=== PATIENT | female | born 1950 | race Caucasian/White ===

== ENCOUNTER 2016-03-02 14:18 | Emergency (ER) | payer MEDICARE, OTHER ==
[~2016-03-02] VITALS: Wt 65.0 kg
[~2016-03-02 14:18] MED LIST: IBUP-1542 PO; TEGRETOL
[2016-03-02] MEDS ORDERED: AZIT250T94 PO (15:16)
[2016-03-02] MEDS ORDERED: D-ME473S18 PO (15:16)
--- NOTE | 2016-03-02 15:18 | ERD ---
ER Documentation Chief Complaint Date/Time DATE: 03/02/16 TIME: 15:17 Chief Complaint COUGH AND CONGESTION FOR THE PAST 4 DAYS. NO RELEIF WITH OTC MED HPI 65-year-old female complains of congestion for the last week. With productive cough. Finds relief with Promethazine DM. Denies fevers, chest pain, vomiting , abdominal pain. ROS All systems reviewed and are negative except as per history of present illness. Medications Home Meds Active Scripts Azithromycin* (Zithromax*) 250 Mg Tablet, 250 MG PO .ZPACK DIRECTED, #6 TAB TAKE 500 MG (2 TABS) THE FIRST DAY THEN 250 MG (1 TAB) DAYS 2-5 Prov:NOY GREGORY MD 03/02/16 Dextromethorphan Hb-Promethazine Hcl (Promethazine DM Syrup) 473 Ml Syrup, 5 ML PO Q6H Y for COUGH, #4 OZ Prov:NOY GREGORY MD 03/02/16 Ibuprofen* (Motrin*) 600 Mg Tab, 600 MG PO Q6H Y for PAIN AND OR ELEVATED TEMP, #30 TAB Prov:PHILIP PAYTON MD 11/05/15 Reported Medications [Tegretol] No Conflict Check 06/01/13 Allergies Allergies: Coded Allergies: No Known Allergy (Unverified , 04/22/14) PMhx/Soc History of Surgery: No Anesthesia Reaction: No Hx Neurological Disorder: No Hx Respiratory Disorders: No Hx Cardiac Disorders: No Hx Psychiatric Problems: No Hx Miscellaneous Medical Probl: Yes (SZ) Hx Alcohol Use: No Hx Substance Use: No Hx Tobacco Use: No Smoking Status: Never smoker Physical Exam Vitals Vital Signs Date Time Temp Pulse Resp B/P Pulse Ox O2 Delivery O2 Flow Rate FiO2 03/02/16 14:43 98.8 72 22 145/71 97 Physical Exam Const: [] Alert, [id number] Head: Atraumatic Eyes: Normal Conjunctiva ENT: Normal External Ears, Nose and Mouth. Neck: Full range of motion..~ No meningismus. Resp: Clear to auscultation bilaterally. No rales or wheezing appreciated. Cardio: Regular rate and rhythm, no murmurs Abd: Soft, non tender, non distended. Normal bowel sounds Skin: No petechiae or rashes Back: No midline or flank tenderness Ext: No cyanosis, or edema Neur: Awake and alert Psych: Normal Mood and Affect Procedures/MDM Patient presents with URI symptoms productive cough for the last week without evidence of hypoxemia, signs of pneumonia, respiratory distress or other causes of chest pain or abdominal pain. Patient will be treated with promethazine and Zithromax. The patient was stable with no new complaints during the ER course. Clinically, there is no current evidence to suggest meningitis, sepsis, acute abdomen, pneumonia, acute coronary syndrome, pulmonary embolism, or any other emergent condition appearing to require further evaluation or hospitalization. The patient should certainly return for any new or worsening symptoms per the aftercare instructions. They should otherwise follow-up with her primary care doctor for reevaluation this week. Departure Diagnosis: Primary Impression: Hypertension Hypertension type: essential hypertension Qualified Code: I10 - Essential hypertension Additional Impression: Upper respiratory infection URI type: unspecified URI Qualified Code: J06.9 - Upper respiratory tract infection, unspecified type Condition: Stable Patient Instructions: Acute Bronchitis Additional Instructions: Recheck for new or worsening symptoms with primary care doctor for primary care. NOY GREGORY MD Mar 02, 2016 15:18
[2016-03-02 15:26] VITALS: BP 124/80; PULSE 73; RESP 16; TEMP 98.1
== END 2016-03-02 15:25 | disposition home or self-care (01) ==
LOC: FTE 14:18
DX: I10 Essential (primary) hypertension (principal); J06.9 Acute upper respiratory infection, unspecified
CPT/HCPCS: 99284